=== PATIENT | female | born 1970 | race Caucasian/White ===

== ENCOUNTER → 2017-10-02 | Outpatient (CLI) | payer BC | LOC: GMAM 14:59 | PROVIDERS: ATTEND Family Medicine | DX: R53.82 Chronic fatigue, unspecified (principal) ==

== ENCOUNTER → 2018-06-11 | Outpatient (CLI) | payer BC ==
--- NOTE | 2018-06-12 13:18 | MRI ---
MRI left elbow without contrast INDICATION: Elbow pain chronic no specific trauma history TECHNIQUE: Noncontrast MR imaging left elbow standard protocol FINDINGS: Mild tendinopathy distal bicep tendon without rupture or retraction. Cubital tunnel is unremarkable. Minimal edema olecranon bursal region. Mild tendinopathy distal tricep. No rupture or retraction. No end-stage arthrosis or unstable osteochondral lesion. No disruption of the regional ligaments. Minimal tendinosis common extensor tendon. Common flexor is intact. IMPRESSION: No acute internal derangement left elbow Tendinopathy distal bicep without rupture Minimal joint fluid Electronically signed by: Zana Moran MD 06/12/2018 1:15 PM CDT
== END ==
LOC: MRI 11:02
PROVIDERS: ATTEND Family Medicine
DX: M67.824 Other specified disorders of tendon, left elbow (principal); M25.422 Effusion, left elbow